=== PATIENT | female | born 1940 | race Caucasian/White ===

== ENCOUNTER 2016-12-03 17:43 | Observation (INO) | payer MEDICARE ==
[~2016-12-03] VITALS: Ht 157.5 cm; Wt 86.6 kg
--- NOTE | ~2016-12-03 | HEMODYNAMI ---
PATIENT:AVA PASCUAL MEDICAL RECORD: [id number] : 44 [facility] [id number] ADMISSION DATE: 12/03/16 Generatedon:12/04/201613:54 Patient name: AVA PASCUAL Patient #: [id number] SSN: : 1940 Date of study: 12/04/2016 Page: Of Hemodynamic Procedure Report Patient Data Patient Demographics Procedure consent was obtained First Name: AVA Gender: Female Last Name: ANKUR : 1940 [facility] Initial: NICANOR Age: 75 year(s) Patient #: [id number] Race: Unknown Additional ID: [id number] Contact details Address: [address] [address] State: [place] City: [place] Zip code: [address] Admission Admission Data Admission Date: 12/03/2016 Admission Time: 21:30 Room #: D.2114 Weight (lbs.): 191.8 Weight (kg.): 87 Lab Results Lab Result Date: 12/04/2016 Lab Result Time: 0:00 Biochemistry Name Units Result Min Max BUN mg/dl 30 --(----)-* 7 18 Creatinine mg/dl 1.4 --(----)*- 0.6 1.3 CBC Name Units Result Min Max Hemoglobin g/dl 13.3 -*(----)-- 13.5 17.5 Coagulation Name Units Result Min Max INR units 1.02 --(--*-)-- 0.85 1.17 Procedure Procedure Types Cath Procedure Diagnostic Procedure LHC LHC w/Coronaries w/Grafts FFR/IVUS Intra-Coronary IVUS Initial Miscellaneous Procedures Moderate Sedation up to 15 minutes Procedure Description Procedure Date Procedure Date: 12/04/2016 Procedure Start Time: 13:34 Procedure End Time: 13:51 Procedure Staff Name Function Edson Rodrigez MD Performing Physician Jo-Ann Holloway RN Nurse Mehran Ac RT Monitor Bakari Farias RT Road Mixer Operator Isra Sands RT Scrub Procedure Data Cath Procedure Fluoroscopy Diagnostic fluoroscopy Total fluoroscopy Time: 2.8 time: 2.8 min min Diagnostic fluoroscopy Total fluoroscopy dose: 601 dose: 601 mGy mGy Contrast Material Contrast Material Type Amount (ml) Isovue 300 85 Entry Location Entry Primary Successful Side Size Upsize Upsize Entry Closure Succes sful Closure Location (Fr) 1 (Fr) 2 (Fr) Remarks Device Remarks Femoral Right 5 Fr 6 Fr Vascade artery Short Closure System Estimated blood loss: 10 ml Diagnostic catheters Device Type Used For End Catheter Placement Cordis 5Fr Pigtail LV Angiography Catheter (MP) Cordis 5Fr JL 4.0 Coronary Catheter (MP) Angiography Cordis 5Fr 3DRC Catheter Coronary (MP) Angiography Procedure Complications No complications Procedure Medications Medication Administration Route Dosage Oxygen NC 2 l/min Heparin Flush Bag added to field 2 bags (1000units/500ml NS) Lidocaine 2% added to field 20 Benadryl I.V. 50 mg Versed I.V. 1 mg Fentanyl I.V. 50 mcg Versed I.V. 1 mg Fentanyl I.V. 50 mcg Hemodynamics Rest HGB: 13.3 (g/dl) Heart Rate: 58 (bpm) Pressure Samples Time Site Value (mmHg) Purpose Heart Use Rate(bpm) 13:39 AO 106/57(77) Snapshot 58 Snapshots Pre Cath Intra NCS Post Cath Vital Signs Time Heart Resp SPO2 NIBP (mmHg) Rhythm Pain Sedation Rate (ipm) (%) Status Level (bpm) 13:14:45 59 22 94 122/62(92) NSR 0 (11) 10(A) , No pain 13:19:03 58 25 96 118/51(103) NSR 0 (11) 10(A) , No pain 13:23:07 63 21 96 120/85(114) NSR 0 (11) 10(A) , No pain 13:27:19 56 21 93 111/54(76) NSR 0 (11) 10(A) , No pain 13:31:31 58 17 94 100/54(76) NSR 0 (11) 10(A) , No pain 13:35:38 56 23 94 113/55(85) NSR 0 (11) 9(A) , No pain 13:39:50 57 16 93 104/54(82) NSR 0 (11) 9(A) , No pain 13:44:00 56 17 92 104/52(82) NSR 0 (11) 9(A) , No pain 13:48:04 59 19 94 118/70(91) NSR 0 (11) 9(A) , No pain Medications Time Medication Route Dose Verified Delivered Reason Notes Effec tiveness by by 13:13:43 Oxygen NC 2 Jo-Ann Jo-Ann used for l/min Holloway Holloway thaw shed heater tender RN 13:13:50 Heparin Flush added 2 Jo-Ann Jo-Ann used for Bag to bags Holloway Holloway procedure (1000units/500ml field RN RN NS) 13:13:58 Lidocaine 2% added 20ml Jo-Ann Jo-Ann used for to vial Holloway Holloway procedure field RN RN 13:14:07 Benadryl I.V. 50 mg Jo-Ann Jo-Ann Per Holloway Holloway physician RN RN 13:33:25 Versed I.V. 1 mg Jo-Ann Jo-Ann for Holloway Holloway sedation RN RN 13:33:30 Fentanyl I.V. 50 Jo-Ann Jo-Ann for mcg Holloway Holloway sedation RN RN 13:34:18 Versed I.V. 1 mg Jo-Ann Jo-Ann for Holloway Holloway sedation RN RN 13:34:21 Fentanyl I.V. 50 Jo-Ann Jo-Ann for mcg Holloway Holloway sedation RN ccu nurse Log Time Note 12:45:53 Bakari Farias RT(R) (CV) sent for patient. Start room use. 13:01:08 Time tracking: Regular hours 13:01:13 Plan of Care:Hemodynamics will remain stable., Cardiac rhythm will remain stable., Comfort level will be maintained., Respiratory function will remain adequate., Patient/ family verbilizes understanding of procedure., Procedure tolerated without complication., Recovers from procedure without complications.. 13:05:09 Patient received from Outpatients to [facility] 2 Alert and oriented. Tansferred to table in Supine position. 13:05:10 Warm blankets applied, and lida hugger turned on for patient comfort. 13:05:11 Correct patient and procedure confirmed by team. 13:05:12 Signed procedure consent form obtained from patient. 13:05:12 ECG and BP/O2 sat monitors applied to patient. 13:13:38 Vital chart was started 13:13:43 Oxygen 2 l/min NC was given by Jo-Ann Holloway RN; used for procedure; 13:13:50 Heparin Flush Bag (1000units/500ml NS) 2 bags added to field was given by Jo-Ann Holloway RN; used for procedure; 13:13:58 Lidocaine 2% 20ml vial added to field was given by Jo-Ann Holloway RN; used for procedure; 13:14:07 Benadryl 50 mg I.V. was given by Jo-Ann Holloway RN; Per physician; :17:19 Baseline sample Acquired. 13:17:24 Rhythm: sinus rhythm 13:17:25 Full Disclosure recording started 13::58 H&P Date Dictated: 12/03/2016 Within 30 days and on chart.. 13::58 Pre-procedure instructions explained to patient. :20:59 Pre-op teaching completed and patient verbalized understanding. 13:21:00 Family in waiting room. 13:21:02 Patient NPO since Midnight. 13:21:05 Is the patient allergic to Iodine/contrast media? No. 13:21:21 Is patient on blood thinner?No 13:21:57 ACC The patient was administered the following blood thiners within the last 24 hours: None 13:21:59 Patient diabetic? No. 13:22:02 Patient not . Patient is over age 55. 13:22:04 Previous problem with sedation/anesthesia? No ? 13:22:04 Snore? Yes 13:22:06 Sleep apnea? No 13:22:06 Deviated septum? No 13:22:07 Opens mouth fully? Yes 13:22:08 Sticks out tongue? Yes 13:22:11 Airway obstruction? Yes COPD 13:22:14 Dentures? No ? 13:22:19 Pre procedure: right dorsailis pedis pulse 1+ Palpable, but thready & weak; easily obliterated 13:22:22 Patient pain scale 0/10 ?. 13:22:26 IV patent on arrival in left forearm with 0.9% NaCl at [facility]. 13:22:28 Lab results completed and on chart. 13:22:38 Right groin area was prepped with chlora-prep and draped in sterile fashion 13::39 Alarms reviewed by R. N. 13::39 Sharps counted by scrub and verified by R.N. 13:22:40 Physician paged 13:22:47 Use device set Femoral Dx 13:22:48 Tegaderm 4 x 4 opened to sterile field. 13:22:48 Acist Manifold opened to sterile field. 13:22:49 Acist Hand Control opened to sterile field. 13:22:50 Acist Syringe opened to sterile field. 13:22:51 Bag Decanter opened to sterile field. 13:22:52 Medline Cath Pack opened to sterile field. 13:22:52 Terumo 5Fr [place] Sheath opened to sterile field. 13:22:52 St Charan 260cm J .035 wire opened to sterile field. 13:22:54 Diagnostic Infinity 5Fr Multipack catheter opened to sterile field. 13:25:41 Patient Weight : 87 lbs 13::58 Lab Result : BUN 30 mg/dl 13::58 Lab Result : Creatinine 1.4 mg/dl 13:27:14 Zero performed for pressure channel P1 13:29:18 Lab Result : Hemoglobin 13.3 g/dl 13:29:18 Lab Result : INR 1.02 units 13:29:50 ACC Patient presents with Unstable Angina CCS Anginal Class 3--Marked limitation of physical activity, angina occurs with ordinary activity.. 13:31:00 --------ALL STOP TIME OUT------ 13:31:01 Final Timeout: patient, procedure, and site verified with staff and physician. All members of the team are in agreement. 13:31:04 Right groin site verified by team. 13:31:07 Physical assessment completed. ASA score P 2 - A patient with mild systemic disease as per Edson Rodrigez MD. 13:31:09 Sedation plan: IV Moderate Sedation Versed, Fentanyl 13:33:25 Versed 1 mg I.V. was given by Jo-Ann Holloway RN; for sedation; 13:33:30 Fentanyl 50 mcg I.V. was given by Jo-Ann Holloway RN; for sedation; :34:18 Versed 1 mg I.V. was given by Jo-Ann Holloway RN; for sedation; 13:34:21 Fentanyl 50 mcg I.V. was given by Jo-Ann Holloway RN; for sedation; 13:34:45 Procedure started. 13::52 Local anesthetic to right femoral artery with Lidocaine 2% by Edson Rodrigez MD.INITIAL ACCESS ONLY 13:35:36 A 5 Fr sheath was inserted into the Right Femoral artery 13:35:45 A Cordis 5Fr Pigtail Catheter (MP) was advanced over the wire and used for LV Angiography. 13:35:59 LV angiography performed. 13:36:00 LV gram done using RAIN 13:36:06 EF : 60 % 13:36:26 Injector settings: Ml/sec: 10, Volume: 20, 13:36:28 Catheter removed. 13:36:33 A Cordis 5Fr JL 4.0 Catheter (MP) was advanced over the wire and used for Coronary Angiography. 13:37:18 LCA angiography performed. 13:37:28 Catheter removed. 13:37:35 A Cordis 5Fr 3DRC Catheter (MP) was advanced over the wire and used for Coronary Angiography. 13:38:23 ANDERSON closed. 13:38:37 RCA angiography performed. 13:39:41 SVG to OM angiography performed. 13:39:50 Catheter removed. 13:40:40 Terumo 6Fr [place] Sheath opened to sterile field. 13:40:40 [place] E[place] IVUS Catheter opened to sterile field. 13:40:41 Hernandez Whisper J 300cm 0.014 guide wire opened to sterile field. 13:40:41 Millennial Mediatronic Launcher 6Fr 3DRC guide catheter opened to sterile field. 13:40:41 Luna Innovations BasixCompak Inflation Kit opened to sterile field. 13:41:01 Sheath upsized to a 6 Fr Short. 13:41:08 6 Fr 3DRC guide catheter was inserted over the wire 13:42:27 Whisper wire advanced. 13:43:04 Wire advanced across lesion. 13:43:07 IVUS catheter advanced over wire. 13:44:05 IVUS pass to RCA lesion performed. 13:44:07 IVUS catheter removed over wire. 13:44:33 Wire removed. 13:44:33 Guide catheter removed. 13:44:43 Vascade 6/7 Fr Closure Device opened to sterile field. 13:44:51 Sheath removed intact; hemostasis achieved with Vascade Closure System to the Right Femoral artery. 13:44:53 Procedure ended.(Physican Out) 13:48:26 Fluoroscopy time 02.80 minutes. 13:48:31 Fluoroscopy dose: 601 mGy 13:48:31 Flurop Dose total: 601 13:48:41 Contrast amount:Isovue 300 85ml. 13:48:47 Sharps counted by scrub and verified by R.N. 13:48:49 Insertion/operative site no bleeding no hematoma. 13:48:52 Post-op/insertion site Right Femoral artery dressed using a 4 x 4 and Tegaderm. 13:48:53 Post Procedure Pulses reassessed and unchanged 13:48:56 Post procedure: right dorsailis pedis pulse 1+ Palpable, but thready & weak; easily obliterated. 13:48:59 Post-procedure physical assessment completed. ASA score P 2 - A patient with mild systemic disease as per Edson Rodrigez MD. 13:49:01 Post procedure rhythm: unchanged. 13:49:04 Estimated blood loss: 10 ml 13:49:06 Post procedure instruction explained to patient.Patient verbalizes understanding. 13:49:06 Patient needs reinforcement of post procedure teaching. 13:49:48 Procedure type changed to Cath procedure, Diagnostic procedure, LHC, LHC w/Coronaries w/Grafts, FFR/IVUS, Intra-Coronary IVUS Initial, Miscellaneous Procedures, Moderate Sedation up to 15 minutes 13:49:54 Procedure Complication : No complications 13:49:56 Procedure and supply charges have been captured, reviewed, submitted and are correct. 13:51:23 Vital chart was stopped 13:51:24 See physician's report for complete and final results. 13:51:27 Report given to PCU. 13:51:31 Patient transfered to PCU with Bed. 13:51:36 Procedure ended. 13:51:36 Full Disclosure recording stopped 13:53:37 End room use (Document Last) Device Usage Item Name Manufacture Quantity Catalog Hospital Part Current Minima l Lot# / Number Charge Number Stock Stock Serial# Code Tegaderm 4 3M 1 [id number] 417794 075877 5 x 4 Acist Acist 1 13628 235475 618640 797125 5 Manifold Medical Systems Inc Acist Hand Acist 1 76211 294513 366502 997353 5 Control Medical Systems Inc Acist Acist 1 20636 418593 148626 605922 20 Syringe Medical Systems Inc Bag Microtek 1 2002S 617609 83461 449835 5 Decanter Medical Inc. Medline Cardinal 1 [id number] 462091 66854 426343 5 Cath Pack Health Terumo 5Fr Terumo 1 [id number] 815215 983070 781035 [address] Charan 1 828720 220860 751736 793424 30 260cm J .035 wire Diagnostic Cardinal 1 [id number] 215548 77914 109825 30 Infinity Health 5Fr Multipack catheter Cordis 5Fr Cardinal 1 757379 5 Pigtail Health Catheter (MP) Cordis 5Fr Cardinal 1 893999 5 JL 4.0 Health Catheter (MP) Cordis 5Fr Cardinal 1 015277 5 3DRC Health Catheter (MP) Terumo 6Fr Terumo 1 [id number] 028381 037957 826027 40 [place] Sheath [place] 1 [id number] 331732 619087 754717 8 [place] Eagleye IVUS Catheter [facility] 1 [id number] 183212 146587 266847 5 Whisper J Vascular 300cm 0.014 guide wire Medtronic Medtronic 1 [id number] 772360 541732 915068 1 Launcher 6Fr 3DRC guide catheter Merit Merit 1 [id number] 074484 408241 792103 15 [facility] Trust[facility] Medical Inflation Kit Vascade 6/7 Cardiva 1 [id number] 096522 073528 188574 5 Fr Closure Medical, Device Inc. Signature Audit [place] Stage Time Signature Unsigned Intra-Procedure 12/04/2016 Mehran Ac 1:54:21 PM RT(R) Signatures Monitor : Mehran Ac RT Signature : Date : Time : [facility] [address] [place] [address]
[~2016-12-03 17:43] MED LIST: ASPIRIN325 MG PO; BAYER CHEWABLE81 MG PO; BENADRYL25 MG PO; CARAFATE1 G PO; COLACE100 MG PO; ELIQUIS2.5 MG PO; GLYCOLAX527 GM PO; HYDROCODONE-APA1 TAB PO; K-DUR20 MEQ; K-DUR20 MEQ PO; LASIX40 MG PO; LISINOPRIL-HCTZ1 T11 PO; MEVACOR40 MG PO; MIRALAX17 GM PO; NITROQUICK0.4 MG SL; NORCO 10/325 TA1 TA1 PO; PEPCID40 MG PO; PERCOCET 10/3251 TA1 PO; PLAVIX75 MG PO; PRILOSEC20 MG PO; PRINIVIL20 MG PO; PRINZIDE 20/12.1 TAB PO; TESSALON PERLE100 MG PO; VOLTAREN75 MG PO; ZOFRAN4 MG PO; [UNRECOGNIZED DRUG - OTHER]
[2016-12-03 18:11] LABS: BASOPHILS 0.2 % (0.0-2.0); EOSINOPHILS 0.3 % (0-7); HEMATOCRIT 48.6 % (36.0-48.0); HEMOGLOBIN 16.7 g/dL (12-16); IMMATURE GRANULOCYTES 0.2 % (0-5); LYMPHOCYTES 20.7 % (15-50); MCH 33.2 pg (26.0-34.0); MCHC 34.4 g/dL (31.0-37.0); MCV 96.6 fL (80.0-100.0); MEAN PLATELET VOLUME 11.2 fL (7.4-10.4); MONOCYTES 5.9 % (2-11); NEUTROPHILS 72.7 % (40-80); PLATELET COUNT 178 10x3/uL (130-400); RBC 5.03 10x6/uL (4.00-5.40)
[2016-12-03 18:25] LABS: ALBUMIN 3.7 g/dL (3.4-5.0); ALKALINE PHOSPHATASE 69 U/L (46-116); ALT (SGPT) 24 U/L (10-68); BILIRUBIN - TOTAL 0.36 mg/dL (0.2-1.3); CALC OSMOLALITY 286 mosm/kg (275-300); CALCIUM 8.8 mg/dL (8.5-10.1); CARBON DIOXIDE 30.2 mmol/L (21.0-32.0); CHLORIDE - SERUM 100 mmol/L (98-107); CREATININE - SERUM 1.5 mg/dL (0.6-1.3); GLUCOSE 144 mg/dL (74-106); PROTEIN - SERUM 7.6 g/dL (6.4-8.2); SODIUM 140 mmol/L (136-145); UREA NITROGEN 27 mg/dL (7-18); eGFR NON AFRICAN AMERICAN 36 mL/min (90-120)
[2016-12-03 18:37] LABS: CKMB 1.9 U/L (0.0-3.6); CREATINE KINASE 82 UL (21-215)
[2016-12-03 18:40] LABS: TROPONIN-I < 0.017 ng/mL (0.000-0.060)
--- NOTE | 2016-12-03 21:40 | NUR ---
REPORT RECEIVED FROM ADRIANA CALL.
--- NOTE | 2016-12-03 22:55 | NUR ---
ARRIVED TO FLOOR VIA WHEELCHAIR, ACCOMPANIED BY HOSPITAL STAFF. ORIENTED TO UNIT AND PLACED ON TELEMETRY 76 SR. LEFT FOREARM INFUSING NS @ 50. NO NEEDS VOICED AT THIS TIME. WILL CONTINUE TO MONITOR. CALL LIGHT IN REACH. SEE NURSE ASSESSMENT.
[2016-12-03 23:17] VITALS: BP 124/56; Ht 157.5 cm; Wt 86.6 kg
[2016-12-04] VITALS: BP 124/56
--- NOTE | 2016-12-04 00:11 | NUR ---
BUTTON PUNCHER AT BEDSIDE TO OBTAIN VITALS, CALL LIGHT IN REACH. WILL CONTINUE WITH PLAN OF CARE.
[2016-12-04 04:00] VITALS: BP 107/46
--- NOTE | 2016-12-04 05:54 | NUR ---
IV TO LEFT FOREARM INFILTRATED, DC'D WITH TIP INTACT. 22 GAUGE TO LEFT UPPER ARM X 2 STICKS.
[2016-12-04 08:00] VITALS: BP 88/33
[2016-12-04 09:27] LABS: BASOPHILS 0 % (0.0-2.0); EOSINOPHILS 0.8 % (0-7); HEMATOCRIT 42.5 % (36.0-48.0); IMMATURE GRANULOCYTES 0.1 % (0-5); LYMPHOCYTES 33.8 % (15-50); MCH 32.5 pg (26.0-34.0); MCHC 32.9 g/dL (31.0-37.0); MEAN PLATELET VOLUME 11.5 fL (7.4-10.4); MONOCYTES 9.6 % (2-11); NEUTROPHILS 55.7 % (40-80); PLATELET COUNT 161 10x3/uL (130-400); RBC 4.31 10x6/uL (4.00-5.40); RDW 14.2 % (11.5-14.5); WBC 7.4 10x3/uL (4.8-10.8)
[2016-12-04 09:29] LABS: MCV 98.6 fL (80.0-100.0)
[2016-12-04 09:31] LABS: INR 1.02 (0.85-1.17); PROTIME 13.3 SECONDS (11.6-15.0)
--- NOTE | 2016-12-04 09:31 | NUR ---
TELEMETRY SB 56. CONSENTS SIGNED FOR [facility]. WILL CONT. PLAN OF CARE.
[2016-12-04 09:33] LABS: ANION GAP 12.8 mmol/L (8-16); CALCIUM 8.2 mg/dL (8.5-10.1); CARBON DIOXIDE 27.4 mmol/L (21.0-32.0); CREATININE - SERUM 1.4 mg/dL (0.6-1.3); POTASSIUM - SERUM 3.2 mmol/L (3.5-5.1)
[2016-12-04 12:00] VITALS: BP 129/62
--- NOTE | 2016-12-04 13:01 | NUR ---
PRE-OPS GIVEN. TO FISHING ACCESSORIES MAKER BY BED.
--- NOTE | 2016-12-04 14:17 | NUR ---
BACK FROM JEWELRY STORE MANAGER. VS WNL. RIGHT GROIN STABLE WITHOUT BLEEDING OR HEMATOMA NOTED. WILL MONITOR.
[2016-12-04] MEDS ORDERED: BETAPACE 80 MG80 MG PO (14:34)
[2016-12-04 16:00] VITALS: BP 140/55
--- NOTE | 2016-12-04 17:00 | NUR ---
BEDREST UP. GROIN STABLE.
--- NOTE | 2016-12-04 17:40 | NUR ---
IV AND TELEMETRY DCD. DC PLANS GIVEN. UNDERSTANDING VOICED. ESCORTED TO CAR BY W/C.
--- NOTE | 2016-12-08 10:32 | EC ---
PATIENT:AVA PASCUAL DATE OF SERVICE: 12/03/16 SEX: F MEDICAL RECORD: [id number] DATE OF : 44 LOCATION:D. D.211 AGE OF PATIENT: 76 ADMISSION DATE: 12/03/16 REFERRING PHYSICIAN: INTERPRETING PHYSICIAN: NAV RODRIGEZ MD ECHOCARDIOGRAM REPORT ECHO CHARGES 4 ECHO COMPLETE CLINICAL DIAGNOSIS: A-FIB ECHOCARDIOGRAPHIC MEASUREMENTS (adult normal given) AC root (d.<3.7cm) 2.7 LV Septum d (<1.2 cm> 1.0 Valve Excursion 1.9 LV Septum (systole) 1.6 Left Atria (s.<4.0cm> 3.4 LVPW d(<1.2cm) 1.1 RV (d.<2.3cm) 3.2 LVPW (sytole) 1.8 LV diastole(<5.6CM) 5.2 MV E-F(>70mm/sec) LV systole 3.0 LVOT Diameter 1.8 MV exc.(>10mm) Est.ejection fraction (50-75%) Pericardial Effusion N DOPPLER: LVIT A 69.0 E 92.0 LA RVSP 39.3 LVOT 68.0 AOP1/2T Asc. Ao 120 RVOT 62.0 RA PA 72.0 AV Gradient Peak 5.8 AV Mean 3.3 AV Area 1.4 MV Gradient Peak 4.2 MV Mean 1.5 MV Area COMMENTS: Salesperson Flying Squad: Ayse GARNETTOE Change Lead:1 Dr. Rodrigez TAPE# PACS DATE OF SERVICE: 12/04/2016 FINDINGS: 1. Left ventricular chamber size is within normal limits. Left ventricular systolic function is mildly reduced, overall ejection fraction estimated at 40%. 2. Left atrium is within normal limits at 3.4 cm. Right atrium and right ventricular chamber sizes are upper limits of normal. 3. Valvular structures have normal structure and motion. 4. Doppler interrogation reveals moderate mitral regurgitation, moderate tricuspid regurgitation, no other valvular insufficiency or stenosis. ECHOCARDIOGRAM REPORT [id number] AVA PASCUAL 5. No evidence of pericardial effusion or left ventricular thrombus. TRANSINT:[id number] Voice Confirmation ID: [id number] DOCUMENT ID: [id number] NAV RODRIGEZ MD at 1032 CC: [id number] DICTATION DATE: 12/07/16 1111 MACHINE CLOTH TRIMMER: 12/07/162120 DIS IN 12/04/16 [facility] [address] [id number]
--- NOTE | 2016-12-08 10:32 | DS ---
PATIENT:AVA GANN :44 MEDICAL RECORD: [id number] DISCHARGE SUMMARY ADMISSION DATE: 12/03/16 DISCHARGE DATE: 12/04/16 DISCHARGE DIAGNOSES: 1. Atrial fibrillation, new onset. 2. Coronary artery disease. 3. Angina. 4. Hypertension. 5. Hyperlipidemia. HOSPITAL COURSE: Ms. Gann presents with angina and atrial fibrillation. She converted to sinus rhythm with sotalol. She underwent cardiac catheterization revealing no new coronary artery disease, was discharged home with the addition of sotalol to her medical regimen. Will follow up with [facility] in 1 month. TRANSINT:[id number] Voice Confirmation ID: [id number] DOCUMENT ID: [id number] NAV PHILLIPS MD at 1032 CC: [id number] DICTATION DATE: 12/04/16 1353 SECURITY SYSTEM TECHNICIAN: 12/05/16 0402 DIS IN 12/04/16 [id number] [place] [address]
--- NOTE | 2016-12-08 10:33 | OP ---
PATIENT NAME: AVA PASCUAL MEDICAL RECORD: [id number] :44 LOCATION:D.M2 D.2114 ADMISSION DATE:12/03/16 SURGEON: ANV PHILLIPS MD DATE OF OPERATION: 12/04/2016 PROCEDURES: 1. Left heart catheterization. 2. Selective coronary angiography. 3. Left ventriculogram. 4. Vein graft angiography. 5. ANDERSON angiography. 6. Intravascular ultrasound, RCA. INDICATION: Angina and coronary artery disease. DESCRIPTION OF THE PROCEDURE: After informed consent was obtained and after a detailed explanation of the risks, benefits as well as alternative therapies, the patient elected to proceed with angiogram and heart catheterization. The right femoral area was prepped and draped in normal sterile fashion. The right femoral artery was cannulated via modified Seldinger technique with placement of 6-Slovenian sheath. All catheters exchanged through this sheath. FINDINGS: Left ventriculogram was performed in standard 30-degree RAIN view, reveals good cardiac wall motion throughout all segments. Overall ejection fraction estimated at 60%. SELECTIVE CORONARY ANGIOGRAPHY: 1. Left main is with no significant angiographic disease. 2. Left anterior descending has previously placed stent proximally. This is widely patent. The LAD then has a significant stenosis in the mid vessel. 3. ANDERSON to the distal LAD is widely patent. 4. Left circumflex has total occlusion of the first obtuse marginal, otherwise only moderate irregularities. 5. Vein graft to the circumflex obtuse marginal is widely patent. 6. The right coronary artery has questionable hazy stenosis in the mid vessel; however, intravascular ultrasound revealed this is no greater than 30%. OVERALL IMPRESSION: Wide patency of the ANDERSON to the LAD, wide patency of the vein graft to the circumflex, no significant disease elsewise. Continue medical management on treatment of the dysrhythmia and atrial fibrillation. TRANSINT:[id number] Voice Confirmation ID: [id number] DOCUMENT ID: [id number] NAV PHILLIPS MD at 1033 CC: [id number] DICTATION DATE: 12/04/16 1355 DRAGLINE ENGINEER: 12/04/16 1934 DIS IN 12/04/16 [facility] [address] [place] [address]
== END 2016-12-04 17:41 | disposition home or self-care (01) ==
LOC: D.ER 17:43 → D.M2 21:30 → OBSVTIME 21:30 → D.M2 12-04 17:41
PROVIDERS: Emergency Medicine; ADMIT Internal Medicine Interventional Cardiology
DX: I48.91 Unspecified atrial fibrillation (principal); I25.119 Atherosclerotic heart disease of native coronary artery with unspecified angina pectoris; Z95.5 Presence of coronary angioplasty implant and graft; Z95.1 Presence of aortocoronary bypass graft; I10 Essential (primary) hypertension; E78.5 Hyperlipidemia, unspecified; Z72.0 Tobacco use

== ENCOUNTER → 2017-08-06 14:08 | Outpatient (CLI) | payer MEDICARE ==
[2016-12-03 23:17] VITALS: BMI 34.9
[~2017-08-06 14:08] MED LIST changes: +BETAPACE 80 MG80 MG PO
[2017-08-06 15:04] LABS: BASOPHILS 0.2 % (0-2); EOSINOPHILS 0.8 % (0-7); HEMATOCRIT 50.5 % (36.0-48.0); HEMOGLOBIN 17.5 g/dL (12-16); IMMATURE GRANULOCYTES 0.2 % (0-5); MCH 33.8 pg (26.0-34.0); MCHC 34.7 g/dL (31.0-37.0); MCV 97.5 fL (80.0-100.0); MEAN PLATELET VOLUME 11.2 fL (7.4-10.4); MONOCYTES 8.3 % (2-11); NEUTROPHILS 60.5 % (40-80); PLATELET COUNT 159 10x3/uL (130-400); RBC 5.18 10x6/uL (4.00-5.40); RDW 13.9 % (11.5-14.5); WBC 6.6 10x3/uL (4.8-10.8)
[2017-08-06 15:08] LABS: ANION GAP 12.6 mmol/L (8-16); CALCIUM 9.3 mg/dL (8.5-10.1); CARBON DIOXIDE 28.8 mmol/L (21.0-32.0); CREATININE - SERUM 1.2 mg/dL (0.6-1.3); POTASSIUM - SERUM 3.4 mmol/L (3.5-5.1)
== END | disposition home or self-care (01) ==
LOC: D.RAD 11:00
PROVIDERS: Podiatrist Foot & Ankle Surgery
DX: I50.9 Heart failure, unspecified (principal); J44.9 Chronic obstructive pulmonary disease, unspecified

== ENCOUNTER 2020-12-22 07:10 | Inpatient (IN) | payer MEDICARE ==
[~2020-12-22] VITALS: Ht 157.5 cm; Wt 94.8 kg
[2020-12-22] VITALS (8 sets, daily range): BP systolic 127–187; BP diastolic 51–90
--- NOTE | ~2020-12-22 | HEMODYNAMI ---
PATIENT:AVA PASCUAL MEDICAL RECORD: [id number] : 44 LOCATION:[facility] D.2134 [facility]# [id number] ADMISSION DATE: 12/22/20 Generatedon:110:28 Patient name: AVA PASCUAL Patient #: [id number] SSN: [id number] : 1940 Date of study: 12/23/2020 Page: Of Hemodynamic Procedure Report Patient Data Patient Demographics Procedure consent was obtained First Name: AVA Gender: Female Last Name: ANKUR : 1940 [facility] Initial: NICANOR Age: 80 year(s) Patient #: [id number] Race: SSN: [id number] Additional ID: [id number] Contact details Address: [place] [address] State: [place] City: [place] Zip code: [address] Admission Admission Data Admission Date: 12/22/2020 Admission Time: 8:21 Arrival Date: 12/22/2020 Arrival Time: 8:21 Admit Source: Other Insurance Payor: Private Room #: D.2134 health insurance [facility] #: [id number] Height (in.): 61.81 BSA: 1.95 (m2) Height (cm.): 157 BMI: 38.54 (kg/m2) Weight (lbs.): 209.44 Weight (kg.): 95 Lab Results Lab Result Date: 12/23/2020 Lab Result Time: 0:00 Biochemistry Name Units Result Min Max BUN mg/dl 17 --(---*)-- 7 18 Creatinine mg/dl 1.2 --(---*)-- 0.6 1.3 eGFR ml/min 46 *-(----)-- 90 120 NONAFRICAN CBC Name Units Result Min Max Hemoglobin g/dl 9.6 *-(----)-- 13.5 17.5 Procedure Procedure Types Cath Procedure Diagnostic Procedure LHC LHC w/Coronaries w/Grafts FFR/IVUS FFR Initial Sedation Charges Moderate Sedation 25-39 minutes Procedure Description Procedure Date Procedure Date: 12/23/2020 Procedure Start Time: 9:57 Procedure End Time: 10:25 Procedure Staff Name Function Floridalma Howard RT Monitor Reymundo Colindres RN Nurse Garrett Dricsoll MD Performing Physician Coco Plascencia RT Scrub Procedure Data Cath Procedure Fluoroscopy Diagnostic fluoroscopy Total fluoroscopy Time: 6.8 time: 6.8 min min Diagnostic fluoroscopy Total fluoroscopy dose: dose: 1116 mGy 1116 mGy Contrast Material Contrast Material Type Amount (ml) Isovue 370 107 Entry Location Entry Primary Successful Side Size Upsize Upsize Entry Closure Succes sful Closure Location (Fr) 1 (Fr) 2 (Fr) Remarks Device Remarks Femoral Right 5 Fr 6 Fr Exoseal artery Short Estimated blood loss: 0 ml Diagnostic catheters Device Type Used For End Catheter Placement MULTIPACK JL 4.0 5Fr Left Coronary catheter Angiography DIAGNOSTIC AR1 MOD 5Fr Multi-vessel catheter ([id number]) Angiography MULTIPACK 3DRC 5Fr Right Coronary catheter Angiography DIAGNOSTIC IM 5Fr SVG Angiography catheter ([id number]) MULTIPACK Pigtail 5 Fr LV Angiography catheter Procedure Complications No complications Procedure Medications Medication Administration Route Dosage Oxygen etCO2 Nasal cannula 4 l/min Lidocaine 2% added to field 20 Heparin Flush Bag added to field 2 bags (1000units/500ml NS) 0.9% NaCl I.V. 100 ml/hr Versed I.V. 1 mg Fentanyl I.V. 50 mcg Versed I.V. 1 mg Fentanyl I.V. 50 mcg Versed I.V. 1 mg Heparin Bolus I.V. 9000 units Hemodynamics Rest BSA: 1.95 (m2) HGB: 9.6 (g/dl) O2 Consumption: Estimated: 177.67 (ml/min) O2 Con sumption indexed: Estimated:91.11 (ml/min/m) Heart Rate: 72 (bpm) Pressure Samples Time Site Value (mmHg) Purpose Heart Use Rate(bpm) 10:10 LV 108/7,29 Snapshot 61 10:10 LV 131/4,15 Pullback 61 10:10 AO 136/52(84) Pullback 61 Gradients Valve Time Site 1 Site 2 Mean SEP/DFP Peak To Heart Use (mmHg) (sec/min) Peak Rate (mmHg) (bpm) Aortic 10:10 LV AO 0 3 0 61 131/4,15 136/52(84) Calculations Valve P-P Mean Valve Index Valve Source Name Gradient Area Flow (cm2) Aortic 0 0 0 0 Snapshots Pre Cath Intra NCS Post Cath Vital Signs Time Heart Resp SPO2 etCO2 NIBP (mmHg) Rhythm Pain Sedation Rate (ipm) (%) (mmHg) Status Level (bpm) 9:38:44 69 25 95 0 157/82(108) NSR 0 (11) 10(A) , No pain 9:43:17 66 29 95 0 145/74(99) NSR 0 (11) 10(A) , No pain 9:47:37 65 31 93 0 130/67(94) NSR 0 (11) 10(A) , No pain 9:51:59 61 20 94 0 138/70(102) NSR 0 (11) 10(A) , No pain 9:56:19 61 20 94 0 136/71(107) NSR 0 (11) 10(A) , No pain 10:00:40 60 16 95 0 147/76(117) NSR 0 (11) 9(A) , No pain 10:05:06 60 18 95 0 143/73(111) NSR 0 (11) 9(A) , No pain 10:09:30 62 14 94 0 134/73(106) NSR 0 (11) 9(A) , No pain 10:13:52 60 22 96 0 135/72(117) NSR 0 (11) 9(A) , No pain 10:18:18 60 24 97 0 139/70(111) NSR 0 (11) 10(A) , No pain 10:22:49 63 26 96 0 140/73(112) NSR 0 (11) 10(A) , No pain Medications Time Medication Route Dose Verified Delivered Reason Notes Effectiveness by by 9:37:58 Oxygen etCO2 4 Garrett Buffie used for Nasal l/min Americo Colindres RN procedure cannula 9:38:05 Lidocaine 2% added 20ml Garrett Garrett for local to vial Americo Driscoll MD anesthetic field 9:38:11 Heparin Flush added 2 Garrett Buffie used for Bag to bags Americo Colindres RN procedure (1000units/500ml field NS) 9:38:27 0.9% NaCl I.V. 100 Garrett Buffie Per physician ml/hr Americo Colindres RN 9:48:22 Versed I.V. 1 mg Garrett Buffie for sedation Americo Colindres RN 9:48:29 Fentanyl I.V. 50 Garrett Buffie for sedation mcg Americo Colindres RN 9:57:11 Versed I.V. 1 mg Garrett Buffie for sedation Americo Colindres RN 9:57:15 Fentanyl I.V. 50 Garrett Buffie for sedation mcg Americo Colindres RN 10:06:30 Versed I.V. 1 mg Garrett Buffie for sedation Americo Colindres RN 10:14:05 Heparin Bolus I.V. 9000 Garrett Buffie for verif ied units Americo Colindres RN anticoagulation with dr driscoll Procedure Log Time Note 8:58:59 Informed consent obtained and on chart 9:01:44 Diagnostic Cath Status : Urgent 9:02:16 Admit Source: Other 9:02:18 ACC Patient presents with Unstable Angina CCS Anginal Class 2--Slight limitation of ordinary activity. 9:02:22 Procedure Status Urgent Heart Cath (IP). 9:02:24 Time tracking: Regular hours (M-F 7:00 - 5:00) 9:02:29 Plan of Care:Hemodynamics will remain stable., Cardiac rhythm will remain stable., Comfort level will be maintained., Respiratory function will remain adequate., Patient/ family verbilizes understanding of procedure., Procedure tolerated without complication., Recovers from procedure without complications.. 9:02:32 Family unavailable. 9:02:34 Patient NPO since Midnight. 9:08:39 Reymundo Colindres RN sent for patient. Start room use. 9:11:07 Lab Result : eGFR NONAFRICAN 46 ml/min 9:11:07 Lab Result : Hemoglobin 9.6 g/dl 9:11:07 Lab Result : BUN 17 mg/dl 9:11:07 Lab Result : Creatinine 1.2 mg/dl 9:12:30 Arrival Date: 12/22/2020 8:21:00 AM 9:12:48 Insurance Payor : Private health insurance 9:12:51 Patient Height : 61.81 inches 9:12:55 Patient Weight : 209.44 lbs 9:17:02 Risk of Mortality: 0.1 9:17:05 Risk of blood transfusion: 13.6 9:17:18 Right groin area was prepped with chlora-prep and draped in sterile fashion 9:17:19 Sharps counted by scrub and verified by R.N. 9:17:19 Alarms reviewed by R. N. 9:23:18 Patient received from Med II to CCL 1 Alert and oriented. Tansferred to table in Supine position. 9:23:19 Correct patient and procedure confirmed by team. 9:23:19 Warm blankets applied, and lida hugger turned on for patient comfort. 9:23:20 ECG and BP/O2 sat monitors applied to patient. 9:37:18 Vital chart was started 9:37:22 Baseline sample Acquired. 9:37:29 Rhythm: sinus rhythm 9:37:31 Full Disclosure recording started 9:37:37 H&P Date Dictated: 12/23/2020 New H&P dictated by physician.. 9:37:39 Pre-op teaching completed and patient verbalized understanding. 9:37:39 Pre-procedure instructions explained to patient. 9:37:43 Is the patient allergic to Iodine/contrast media? No. 9:37:45 Was the patient premedicated? Yes 9:37:46 Is patient on blood thinner?No 9:37:58 Oxygen 4 l/min etCO2 Nasal cannula was administered by Reymundo Colindres RN; used for procedure; Verbal order read back and verified. 9:38:05 Lidocaine 2% 20ml vial added to field was administered by Garrett Driscoll MD; for local anesthetic; Verbal order read back and verified. 9:38:11 Heparin Flush Bag (1000units/500ml NS) 2 bags added to field was administered by Reymundo Colindres RN; used for procedure; Verbal order read back and verified. 9:38:27 0.9% NaCl 100 ml/hr I.V. was administered by Reymundo Colindres RN; Per physician; Verbal order read back and verified. 9:44:59 Patient diabetic? No. 9:45:07 Previous problem with sedation/anesthesia? No ? 9:45:09 Snore? No 9:45:10 Sleep apnea? No 9:45:11 Opens mouth fully? Yes 9:45:11 Deviated septum? No 9:45:12 Sticks out tongue? Yes 9:45:17 Airway obstruction? Yes COPD ASTHMA 9:45:21 Dentures? Yes IN TIGHT 9:45:26 Pre procedure: right dorsailis pedis pulse 2+ Normal; easily identifiable; not easily obliterated 9:45:29 Pre procedure: left dorsailis pedis pulse 2+ Normal; easily identifiable; not easily obliterated 9:45:32 Patient pain scale 0/10 ?. 9:45:38 IV patent on arrival in left forearm with 0.9% NaCl at O. 9:45:57 Physician arrived 9:45:58 --------ALL STOP TIME OUT------ 9:46:00 Final Timeout: patient, procedure, and site verified with staff and physician. All members of the team are in agreement. 9:46:02 Right groin site verified by team. 9:46:05 Fire Safety Assessment: A--An alcohol-based skin anteseptic being used preoperatively., C--Open oxygen or nitrous oxide is being used., D--An ESU, laser, or fiber-optic light is being used. 9:46:08 Physical assessment completed. ASA score P 2 - A patient with mild systemic disease as per Garrett Driscoll MD. 9:46:21 3a) 45-59 Moderately reduced kidney function. 9:46:43 Maximum allowable contrast dose (3.7 X eGFR X 0.75)127 ml. 9:46:48 Sedation plan: IV Moderate Sedation Medication:Versed, Fentanyl 9:46:51 Use device set Femoral Dx 9:46:52 Bag Decanter (2001S) opened to sterile field. 9:46:52 ACIST Syringe (94786) opened to sterile field. 9:46:53 Medline Cath Pack ([id number]) opened to sterile field. 9:46:54 ACIST Manifold (80181) opened to sterile field. 9:46:54 ACIST Hand Control (09145) opened to sterile field. 9:46:55 Tegaderm 4 x 4 (1626W) opened to sterile field. 9:46:55 DIAGNOSTIC Multipack 5Fr catheter set (VM1475) opened to sterile field. 9:47:19 SHEATH 5FR [place] (RUB338) opened to sterile field. 9:47:20 EMERALD Guide Wire (374-404) opened to sterile field. 9:48:22 Versed 1 mg I.V. was administered by Reymundo Colindres RN; for sedation; Verbal order read back and verified. 9:48:29 Fentanyl 50 mcg I.V. was administered by Reymundo Colindres RN; for sedation; Verbal order read back and verified. 9:52:59 Zero performed for pressure channel P1 9:53:12 Zero performed for pressure channel P1 9:57:11 Versed 1 mg I.V. was administered by Reymundo Colindres RN; for sedation; Verbal order read back and verified. 9:57:11 Procedure started. 9:57:15 Fentanyl 50 mcg I.V. was administered by Reymundo Colindres RN; for sedation; Verbal order read back and verified. 9:57:16 Local anesthetic to right femoral artery with Lidocaine 2% by Garrett Driscoll MD.INITIAL ACCESS ONLY 9:58:46 A 5 Fr sheath was inserted into the Right Femoral artery 9:58:57 A MULTIPACK JL 4.0 5Fr catheter was advanced over the wire and used for Left Coronary Angiography. 9:59:39 LCA angiography performed. 9:59:42 Injector settings: Ml/sec: 3, Volume: 6, 10:01:12 Catheter removed. 10:02:29 A DIAGNOSTIC AR1 MOD 5Fr catheter ([id number]) was advanced over the wire and used for Multi-vessel Angiography. 10:02:35 SVG to Circ angiography performed. 10:03:36 RCA angiography performed. 10:03:39 Injector settings: Ml/sec: 3, Volume: 6, 10:04:27 Catheter removed. 10:04:45 A MULTIPACK 3DRC 5Fr catheter was advanced over the wire and used for Right Coronary Angiography. 10:06:15 RCA angiography performed. 10:06:19 Injector settings: Ml/sec: 3, Volume: 6, 10:06:22 Catheter removed. 10:06:30 Versed 1 mg I.V. was administered by Reymundo Colindres RN; for sedation; Verbal order read back and verified. 10:06:37 A DIAGNOSTIC IM 5Fr catheter ([id number]) was advanced over the wire and used for SVG Angiography. 10:08:15 ANDERSON angiography performed. 10:08:18 Injector settings: Ml/sec: 3, Volume: 6, 10:08:31 Catheter removed. 10:08:55 A MULTIPACK Pigtail 5 Fr catheter was advanced over the wire and used for LV Angiography. 10:10:35 LV gram done using RAIN 10:10:38 Injector settings: Ml/sec: 5, Volume: 15, 10:10:41 LV hemodynamics recorded. 10:10:47 EF : 55 % 10:11:09 Catheter removed. 10:11:48 INFLATOR Merit BasixCompak (VC0303) opened to sterile field. 10:11:48 SHEATH 6FR [place] (QYG907) opened to sterile field. 10:11:49 TUBING High Pressure Extension Tubing (Americo) ([id number]) opened to sterile field. 10:13:29 Downey OmniWire (81296) opened to sterile field. 10:13:30 GUIDE 6FR JR 4.0 catheter (UV3GF57) opened to sterile field. 10:13:54 Proceeding to intervention. 10:14:01 Sheath upsized to a 6 Fr Short. 10:14:04 ACC Pre-intervention JACQUES Flow is 3. 10:14:05 Heparin Bolus 9000 units I.V. was administered by Reymundo Colindres RN; for anticoagulation; verified with dr driscoll Verbal order read back and verified. 10:14:12 6 Fr JR 4 guide catheter was inserted over the wire 10:14:18 Pressure wire advanced. 10:18:15 Wire advanced across lesion. 10:18:21 Baseline FFR 1. 10:19:09 pRCA lesion measured at 0.97 with IFR 10:20:02 Wire removed. 10:20:06 Guide catheter removed. 10:20:20 Sheath removed intact; hemostasis achieved with Exoseal to the Right Femoral artery. 10:20:30 Procedure ended.(Physican Out) 10:21:19 Fluoroscopy time 06.80 minutes. 10:21:26 Fluoroscopy dose: 1116 mGy 10:21:26 Flurop Dose total: 1116 10:21:35 Dose Area Product 76462 mGy/cm. 10:22:29 Contrast amount:Isovue 370 107ml. 10:22:31 Maximum allowable dose exceeded? No. 10:22:32 Sharps counted by scrub and verified by R.N. 10:22:33 Insertion/operative site no bleeding no hematoma. 10:22:36 Post-op/insertion site Right Femoral artery dressed using a 4 x 4 and Tegaderm. 10:22:38 Post right femoral artery:stable 10:22:41 Post Procedure Pulses reassessed and unchanged 10:22:43 Post procedure rhythm: unchanged. 10:22:48 Patient needs reinforcement of post procedure teaching. 10:22:48 Post procedure instruction explained to patient.Patient verbalizes understanding. 10:23:11 Procedure type changed to Cath procedure, Diagnostic procedure, LHC, LHC w/Coronaries w/Grafts, FFR/IVUS, FFR Initial, Sedation Charges, Moderate Sedation 25-39 minutes 10:23:47 Procedure and supply charges have been captured, reviewed, submitted and are correct. 10:23:51 Procedure Complication : No complications 10:23:56 Vital chart was stopped 10:24:01 [facility] Findings: mild to moderate CAD (<70%) 10:24:03 Operative report dictated upon procedure completion. 10:24:04 See physician's report for complete and final results. 10:24:54 EXOSEAL 6Fr (EX600) opened to sterile field. 10:25:00 Report given to Med II. 10:25:05 Patient transfered to Med II with Stretcher. 10:25:11 Full Disclosure recording stopped 10:25:11 Procedure ended. 10:25:15 End room use (Document Last) 10:26:39 ACT drawn and resulted at 316 seconds. (normal therapeutic range 180-240 seconds). 10:26:52 Estimated blood loss: 0 ml Device Usage Item Name Manufacture Quantity Catalog Hospital Part Current Minimal L ot# / Number Charge Number Stock Stock Serial# Code ACIST Acist 1 11969 696849 009054 901142 20 Syringe Medical (73062) Systems Inc Bag Microtek 1 187890 48215 220457 5 Decanter Medical Inc. () Medline Medline 1 [id number] 771191 23514 260589 5 Cath Pack ([id number]) ACIST Hand Acist 1 94801 235265 838407 941511 5 Control Medical (66846) Systems Inc ACIST Acist 1 46144 840921 357016 100761 5 Manifold Medical (90780) Systems Inc DIAGNOSTIC Cardinal 1 RA3108 594215 35784 635912 30 [facility] Go Vocab 5Fr catheter set (RC5870) Tegaderm 4 3M 1 1626W 526931 461051 202415 5 x 4 (1626W) SHEATH 5FR Terumo 1 TYR183 573768 143270 945640 5 [place] (WUW267) EMERALD Cardinal 1 502-455 954710 857473 672296 5 Guide Wire Health (502-455) MULTIPACK Cardinal 1 267857 5 JL 4.0 5Fr Health catheter DIAGNOSTIC Cardinal 1 374117Q 439211 347514 665441 15 AR1 MOD 5Fr Health catheter ([id number]) MULTIPACK Cardinal 1 222981 5 3DRC 5Fr Health catheter DIAGNOSTIC Cardinal 1 498194C 916742 189553 738598 5 IM 5Fr Health catheter (225247T) MULTIPACK Cardinal 1 208216 5 Pigtail 5 Health Fr catheter SHEATH 6FR Terumo 1 LLV585 997969 607679 227517 40 [place] (IUG923) INFLATOR Merit 1 FR8519 613534 496466 212845 15 Merit Medical BasixCompak (DJ1136) TUBING High Merit 1 VR0058F 348284 77535 891234 10 Pressure Medical Extension Tubing (Driscoll) (KH7730V) Downey Downey 1 0498936 938533 78992 9995 5 OmniWire (34046) GUIDE 6FR Medtronic 1 JH2CG80 692789 17060 842360 1 JR 4.0 catheter (PN5PE45) EXOSEAL 6Fr Cardinal 1 EX600 059382 286237 090705 10 (EX600) Health Signature Audit [place] Stage Time Signature Unsigned Intra-Procedure 12/23/2020 Floridalma Howard 10:26:17 AM RT(R) Intra-Procedure 12/23/2020 Reymundo Colindres RN 10:26:52 AM Intra-Procedure 12/23/2020 Garrett Driscoll MD 10:28:33 AM [facility] [address] [place] [address]
--- NOTE | 2020-12-22 07:18 | NUR ---
RT NOTIFIED OF BREATHING TREATMENT AT THIS TIME.
--- NOTE | 2020-12-22 07:24 | NUR ---
RT ROUNDING FOR ABGs AND UPDRAFT.
[2020-12-22] MEDS ORDERED: EFFEXOR75 MG PO (07:43)
[2020-12-22] MEDS ORDERED: PRINIVIL20 MG PO (07:45)
[2020-12-22] MEDS ORDERED: NITROSTAT0.4 MG SL (07:46)
[2020-12-22] MEDS ORDERED: POLYTRIM EYE DR10 ML EACH EYE (07:46)
[2020-12-22 07:47] LABS: BASOPHILS 0.1 % (0-2); HEMATOCRIT 30.2 % (36.0-48.0); HEMOGLOBIN 9.4 g/dL (12-16); IMMATURE GRANULOCYTES 3.6 % (0-5); LYMPHOCYTE ABS# 1.42 10x3/uL (1.18-3.74); MCH 31.4 pg (26.0-34.0); MCHC 31.1 g/dL (31.0-37.0); MEAN PLATELET VOLUME 10.1 fL (7.4-10.4); MONOCYTES 5.2 % (2-11); NEUTROPHIL ABS# 4.67 10x3/uL (1.56-6.13); NEUTROPHILS 69.1 % (40-80); PLATELET COUNT 187 10x3/uL (130-400); RBC 2.99 10x6/uL (4.00-5.40); RDW 17.2 % (11.5-14.5); WBC 6.8 10x3/uL (4.8-10.8)
--- NOTE | 2020-12-22 07:47 | NUR ---
HOME MEDS RECONCILED
[2020-12-22 07:56] LABS: APTT 29.9 SECONDS (22.8-39.4); CALC OSMOLALITY 282 mosm/kg (275-300); CARBON DIOXIDE 31.4 mmol/L (21.0-32.0); CHLORIDE - SERUM 101 mmol/L (98-107); GLUCOSE 148 mg/dL (74-106); INR 1.2 (0.85-1.17); POTASSIUM - SERUM 3.4 mmol/L (3.5-5.1); PROTIME 14.1 SECONDS (11.6-15.0); SODIUM 140 mmol/L (136-145); UREA NITROGEN 15 mg/dL (7-18); eGFR NON AFRICAN AMERICAN 57 mL/min (90-120)
--- NOTE | 2020-12-22 07:58 | NUR ---
COVID-19 ANTIGEN AND PCR SWAB COLLECTED PER PROTOCOL AND SENT TO LAB.
--- NOTE | 2020-12-22 08:00 | NUR ---
PATIENT NOTED TO HAVE DESAT ON MONITOR. UPON ENTERING PATIENT HAD O2 CANNULA OFF. PUT O2 CANNULA BACK ON APPROPRIATELY, O2 SAT INCREASED. WILL MONITOR. NAD.
[2020-12-22 08:12] LABS: ALBUMIN 3.2 g/dL (3.4-5.0); ALKALINE PHOSPHATASE 64 U/L (30-120); ALT (SGPT) 45 U/L (10-68); BILIRUBIN - TOTAL 0.54 mg/dL (0.2-1.3); CKMB 1.4 U/L (0.0-3.6); CREATINE KINASE 101 UL (21-215); PRO BNP 5584 pg/mL (0-450); PROTEIN - SERUM 6.6 g/dL (6.4-8.2); TROPONIN-I < 0.017 ng/mL (0.000-0.060)
[2020-12-22 08:36] LABS: SARS-CoV-2 ANTIGEN NEGATIVE- SARS-COV-2 (NEGATIVE)
--- NOTE | 2020-12-22 08:42 | NUR ---
ASSISTED TO POSITION OF COMFORT, GIVEN BLANKET. DENIES FURTHER NEEDS. REPORTS FEELING IMPROVED.
--- NOTE | 2020-12-22 08:49 | NUR ---
ATTEMPTED TO CALL REPORT AT THIS TIME FOR ROOM 2139. STATES THAT NURSE WILL CALL BACK.
--- NOTE | 2020-12-22 08:56 | NUR ---
REPORT CALLED TO MENDOZA ON MED II.
--- NOTE | 2020-12-22 10:30 | NUR ---
PATIENT SITTING ON SIDE OF BED, RESP EVEN AND NON LABORED, NO S/S OF DISTRESS, ASSISTED PATIENT TO BATHROOM AND BACK TO BED, PATIENTS ASSESSMENT AND QUICKSTART COMPLETED, NO FURTHER NEEDS AT THIS TIME, VIANCA MENESES
--- NOTE | 2020-12-22 20:03 | NUR ---
Assumed care of pt after report/rounds. Pt is A&OX4 and verbalizes wants/needs clearly without hesitation or difficulty. Denies pain/discomfort. Tele on and leads readjusted. Pt resting in bed at this time. RT did apply O2 via NC to maintain Sats>90%. Pt shows no s/sx of dyspnea on assessment.
[2020-12-23] VITALS (8 sets, daily range): BP systolic 138–185; BP diastolic 59–100; Ht 157.5 cm; Wt 94.8 kg
[2020-12-23 05:57] LABS: BASOPHILS 0.4 % (0-2); EOSINOPHILS 0 % (0-7); HEMATOCRIT 31.1 % (36.0-48.0); HEMOGLOBIN 9.6 g/dL (12-16); IMMATURE GRANULOCYTES 4.7 % (0-5); LYMPHOCYTES 23.7 % (15-50); MCH 31.4 pg (26.0-34.0); MCHC 30.9 g/dL (31.0-37.0); MCV 101.6 fL (80.0-100.0); MEAN PLATELET VOLUME 10.8 fL (7.4-10.4); MONOCYTES 9.9 % (2-11); NEUTROPHIL ABS# 3.36 10x3/uL (1.56-6.13); NEUTROPHILS 61.3 % (40-80); RBC 3.06 10x6/uL (4.00-5.40); RDW 17.1 % (11.5-14.5); WBC 5.5 10x3/uL (4.8-10.8)
[2020-12-23 06:22] LABS: ALBUMIN 3.4 g/dL (3.4-5.0); ANION GAP 8.9 mmol/L (8-16); BILIRUBIN - TOTAL 0.7 mg/dL (0.2-1.3); CALCIUM 8.8 mg/dL (8.5-10.1); CARBON DIOXIDE 31.4 mmol/L (21.0-32.0); CREATININE - SERUM 1.2 mg/dL (0.6-1.3); MAGNESIUM - SERUM 2.2 mg/dL (1.8-2.4); POTASSIUM - SERUM 3.3 mmol/L (3.5-5.1); PROTEIN - SERUM 7.2 g/dL (6.4-8.2)
[2020-12-23 06:28] LABS: PLATELET COUNT 261 10x3/uL (130-400)
--- NOTE | 2020-12-23 08:15 | NUR ---
PATIENT PREOP FOR HEALTH CONSULTANT. TYLENOL GIVEN FOR BACK PAIN AND BETA KELIN MED GIVEN.
[2020-12-23 08:38] LABS: CHOL - HDL RATIO 2.9 ratio (2.3-4.1); LDL-HDL RATIO 1.1 ratio (1.5-3.5)
--- NOTE | 2020-12-23 09:20 | NUR ---
LEFT FOR RN DIGESTIVE VIA BED.
--- NOTE | 2020-12-23 19:48 | NUR ---
PT SITTING UP IN BED, AWAKE ALERT DRESSING TO RIGHT GROIN CDI, PPP. DENIES NEEDS. WILL CONTINUE TO MONITOR
[2020-12-24 04:00] VITALS: BP 121/79
--- NOTE | 2020-12-24 06:24 | NUR ---
pt c/o SOB O2 sat 99-100% on 3.5 L pt reports anxiety and that she feels she probably needs somthing for this. She also wants her home [place] resumed. Pt scheduled UD due 0700 notified RT pt would like these whenever she can have them. Outside Solar Sales Consultant distress noted at this time, will pass on in shift report will continue to monitor
[2020-12-24 06:53] LABS: BASOPHILS 0.2 % (0-2); EOSINOPHILS 0 % (0-7); HEMATOCRIT 30.2 % (36.0-48.0); HEMOGLOBIN 9.5 g/dL (12-16); IMMATURE GRANULOCYTES 2.2 % (0-5); LYMPHOCYTES 22.4 % (15-50); MCH 31.9 pg (26.0-34.0); MCHC 31.5 g/dL (31.0-37.0); MCV 101.3 fL (80.0-100.0); MONOCYTES 8.8 % (2-11); NEUTROPHIL ABS# 3.56 10x3/uL (1.56-6.13); NEUTROPHILS 66.4 % (40-80); PLATELET COUNT 255 10x3/uL (130-400); RBC 2.98 10x6/uL (4.00-5.40); RDW 17.3 % (11.5-14.5); WBC 5.4 10x3/uL (4.8-10.8)
[2020-12-24 07:05] LABS: ALBUMIN 3.4 g/dL (3.4-5.0); BILIRUBIN - TOTAL 0.76 mg/dL (0.2-1.3); CALCIUM 8.5 mg/dL (8.5-10.1); CARBON DIOXIDE 30.2 mmol/L (21.0-32.0); CREATININE - SERUM 1.1 mg/dL (0.6-1.3); MAGNESIUM - SERUM 2.2 mg/dL (1.8-2.4); PHOSPHOROUS 3.8 mg/dL (2.5-4.9); PROTEIN - SERUM 6.7 g/dL (6.4-8.2)
[2020-12-24 07:06] LABS: POTASSIUM - SERUM 4.2 mmol/L (3.5-5.1)
[2020-12-24 09:38] VITALS: BP 180/79
--- NOTE | 2020-12-24 19:30 | NUR ---
PT IN BED, AAO X 2, RESP EVEN AND UNLABORED, NO DISTRESS NOTED, CL IN REACH, SR UP X 2.
[2020-12-24 20:00] VITALS: BP 165/84
--- NOTE | 2020-12-25 03:35 | NUR ---
I have reviewed this patient and I concur with the Shift Assessment completed by the Licensed Practical Nurse today this shift.
[2020-12-25 04:00] VITALS: BP 129/69
[2020-12-25 05:16] LABS: HEMATOCRIT 29.8 % (36.0-48.0); HEMOGLOBIN 9.7 g/dL (12-16); MCH 32.6 pg (26.0-34.0); MCHC 32.6 g/dL (31.0-37.0); MEAN PLATELET VOLUME 10.3 fL (7.4-10.4); NEUTROPHILS 52.7 % (40-80); PLATELET COUNT 271 10x3/uL (130-400); RBC 2.98 10x6/uL (4.00-5.40); RDW 17.4 % (11.5-14.5); WBC 4.8 10x3/uL (4.8-10.8)
[2020-12-25 06:23] LABS: ALBUMIN 3.3 g/dL (3.4-5.0); ANION GAP 11.6 mmol/L (8-16); BILIRUBIN - TOTAL 0.72 mg/dL (0.2-1.3); CALCIUM 8.5 mg/dL (8.5-10.1); CARBON DIOXIDE 27.9 mmol/L (21.0-32.0); CREATININE - SERUM 1.1 mg/dL (0.6-1.3); PROTEIN - SERUM 6.9 g/dL (6.4-8.2)
[2020-12-25 06:24] LABS: POTASSIUM - SERUM 3.5 mmol/L (3.5-5.1)
--- NOTE | 2020-12-25 08:00 | NUR ---
SITTING UP IN BED, AWAKE/ALERT/ORIENTED, T/R SELF AD LANDON, CONT OF B/B WITH BRPs PER SELF AD LANDON, DENIES PAIN/OTHER DISCOMFORT AT THIS TIME, CALL LIGHT/PHONE/WATER WITHIN REACH, NO S/S OF ACUTE DISTRESS OBSERVED.
[2020-12-25 08:39] VITALS: BP 132/70
[2020-12-25 12:31] VITALS: BP 105/83
[2020-12-25 16:01] VITALS: BP 115/79
--- NOTE | 2020-12-25 19:30 | NUR ---
PT IN BED, AAO X 3, RESP EVEN AND UNLABORED, NO DISTRESS NOTED, CL IN REACH, SR UP X 2.
[2020-12-25 20:00] VITALS: BP 122/68
[2020-12-26 04:45] VITALS: BP 169/61
[2020-12-26 05:27] LABS: BASOPHILS 0.2 % (0-2); EOSINOPHILS 0 % (0-7); HEMATOCRIT 32.2 % (36.0-48.0); IMMATURE GRANULOCYTES 2.8 % (0-5); LYMPHOCYTE ABS# 1.47 10x3/uL (1.18-3.74); LYMPHOCYTES 33.7 % (15-50); MCH 31.1 pg (26.0-34.0); MCHC 31.1 g/dL (31.0-37.0); MEAN PLATELET VOLUME 10.7 fL (7.4-10.4); MONOCYTES 8.7 % (2-11); NEUTROPHIL ABS# 2.38 10x3/uL (1.56-6.13); NEUTROPHILS 54.6 % (40-80); PLATELET COUNT 281 10x3/uL (130-400); RBC 3.22 10x6/uL (4.00-5.40); RDW 17.1 % (11.5-14.5); WBC 4.4 10x3/uL (4.8-10.8)
[2020-12-26 05:58] LABS: ALBUMIN 3.3 g/dL (3.4-5.0); BILIRUBIN - TOTAL 0.74 mg/dL (0.2-1.3); CALCIUM 8.4 mg/dL (8.5-10.1); CARBON DIOXIDE 28.6 mmol/L (21.0-32.0); MAGNESIUM - SERUM 2.1 mg/dL (1.8-2.4); POTASSIUM - SERUM 3.6 mmol/L (3.5-5.1); PROTEIN - SERUM 6.8 g/dL (6.4-8.2)
--- NOTE | 2020-12-26 06:30 | NUR ---
I have reviewed this patient and I concur with the Shift Assessment completed by the Licensed Practical Nurse today this shift.
--- NOTE | 2020-12-26 07:50 | NUR ---
SITTING UP ON SIDE OF BED, AWAKE/ALERT/ORIENTED, T/R SELF AD LANDON, CONT OF B/B WITH BRPs PER SELF AD LANDON, DENIES PAIN/OTHER DISCOMFORT AT THIS TIME, CALL LIGHT/PHONE/WATER WITHIN REACH, NO S/S OF ACUTE DISTRESS OBSERVED.
[2020-12-26] MEDS ORDERED: ENTRESTO 24 MG1 EACH PO (09:59)
[2020-12-26] MEDS ORDERED: PULMICORT0.5 MG/21 UPD (10:00)
--- NOTE | 2020-12-26 11:55 | NUR ---
PROVIDED WRITTEN AND VERBAL DISCHARGE, INSTRUCTIONS/EDUCATION TO WHICH PT STATED UNDERSTANDING, DISCONTINUED IV ACCESS AND CARDIAC TELEMETRY MONITORING, NO S/S OF ACUTE DISTRESS OBSERVED.
--- NOTE | 2020-12-26 13:33 | NUR ---
DC'd home to self care via w/c in stable condition accompanied by hospital staff and a family member, no s/s of acute distress observed.
--- NOTE | 2020-12-26 13:38 | NUR ---
Nutrition Follow-up: Pt reports good appetite/PO intake. Denies N/V/C/D. Noted plans to d/c today. Diet: Cardiac No new wt; last wt: 209# (12/23) Last BM: 12/25 Labs noted: Na 134, Glu 128, Ca 8.4, Alb 3.3 Meds reviewed -RD will follow up within 7 days if pt still admitted.
--- NOTE | 2020-12-26 14:15 | MORECARE ---
CASE MANAGEMENT DISCHARGE SUMMARY PATIENT: AVA PASCUAL UNIT: [id number] ADM DATE: 12/22/20 AGE: 80 : 42 SEX: F ROOM/BED: D2134 AUTHOR: EMILEE FISH PHYSICIAN: REFERRING PHYSICIAN: JUSTICE JIMENEZ MD DATE OF SERVICE: 12/26/20 Case Management Discharge Planning Summary DCP REVIEW SUMMARY ANTICIPATED D/C DATE: EXPECTED LOS : CASE STATUS: DCP Initiated INITIAL REVIEW: 12/26/2020 INITIAL REVIEWER: Ana Luisa Vernon FINAL DISCHARGE DISPOSITION: : FINAL REVIEWER: FINAL REVIEW DATE: DCP Focus Questions & Answers DCP REV -DCP Review Added on: 12/26/20 2:13 pm QUESTION: ANSWER DCP Screen High Risk Factors: : None Walking limitation: Patient stated self rated walking limitation present? : No Age: : 67 - 81 Prior living environment: : Lives with others Disability ranking: : Grade 1: No significant disability DCP Evaluation Patient's ability to cope with chronic illness : d. No chronic illness Mental health screen: : No mental health history Would patient like to participate in any Care Coordination programs (if applicable): : Not applicable DCP Re-evaluation Would patient like to participate in any Care Coordination programs (if applicable): : Not applicable PROVIDER NETWORKING REVIEW DATE: 12/26/2020 SERVICE TYPE: Durable Medical Equipment REVIEWER: Ana Luisa Vernon REVIEW DATE: 12/26/2020 SERVICE TYPE: Durable Medical Equipment REVIEWER: Ana Luisa Vernon REVIEW DATE: 12/26/2020 SERVICE TYPE: Home Health Care (Non-Skilled) REVIEWER: Ana Luisa Vernon PROVIDER: FINAL PROVIDER? : FINAL DATE/TIME: CT PATIENT: AVA PASCUAL ENCOUNTER: [id number] MEDICAL RECORD#: [id number] ADMISSION DATE: 12/22/2020 DISCHARGE DATE: 12/26/2020 ATTENDING MD: JUSTICE AGUILAR : AGE: 80 MARITAL STATUS: W DC PLAN ID: [id number] FACILITY: [facility] PRINTED ON: 12/26/20 14:15 CT All edits/amendments must be made on the electronic document DICTATION DATE: 12/26/20 141 SENIOR FRONT END DEVELOPER: BRITTNEY 12/26/20 141 RPT#: [id number] DC DATE:12/26/20 STATUS: DIS IN [facility] [address] [place] [address] END OF REPORT
--- NOTE | 2020-12-26 14:18 | NUR ---
SHAVON met with patient in the room to discuss discharge planning/needs. She states she lives with her grand daughter (#[phone]). States she is independent with all ADL's, except grand daughter helps with shower sometimes. States she has home oxygen with portable, but wants to change companies. States [employer] is "double charging". [facility] for [facility] signed. She has a shower chair. I called [facility] at [facility] and faxed DWO by Dr. Don for nebulizer with A&A and oxygen with portability. [facility] states they can service her because they have a contract with [employer]. Oxygen tank has been delivered to her room. States she has a shower chair at home. She uses [facility]. Dr. Horn is her PCP. I have faxed clinical to [facility]. LACI BALBUENA explained, signed, given, copy placed in MR.
--- NOTE | 2020-12-26 14:27 | MORECARE ---
CASE MANAGEMENT DISCHARGE SUMMARY PATIENT: AVA PASCUAL UNIT: [id number] ADM DATE: 12/22/20 AGE: 80 : 44 SEX: F ROOM/BED: D.0063 AUTHOR: EMILEE FISH PHYSICIAN: REFERRING PHYSICIAN: JUSTICE JIMENEZ MD DATE OF SERVICE: 12/26/20 Case Management Discharge Planning Summary COMMENTS ENTERED DATE: 12/26/20 14:14 CT COMMENT TYPE: Discharge Planning REVIEWER: Ana Luisa Vernon CM met with patient in the room to discuss discharge planning/needs. She states she lives with her grand daughter [phone]). States she is independent with all ADL's, except grand daughter helps with shower sometimes. States she has home oxygen with portable, but wants to change companies. States [employer] is "double charging". BERNARDA for [facility] signed. She has a shower chair. I called [facility] at [facility] and faxed DWO by Dr. Don for nebulizer with [employer] and oxygen with portability. [facility] states they can service her because they have a contract with [employer]. Oxygen tank has been delivered to her room. States she has a shower chair at home. She uses [facility] Dr. Horn is her PCP. I have faxed clinical to [facility]. DC IMM explained, signed, given, copy placed in MR. SAMSON REVIEW SUMMARY ANTICIPATED D/C DATE: EXPECTED LOS : CASE STATUS: DCP Initiated INITIAL REVIEW: 12/26/2020 INITIAL REVIEWER: Ana Luisa Vernon FINAL DISCHARGE DISPOSITION: : FINAL REVIEWER: FINAL REVIEW DATE: DCP Focus Questions & Answers DCP REV -DCP Review Added on: 12/26/20 2:13 pm QUESTION: ANSWER DCP Screen High Risk Factors: : None Walking limitation: Patient stated self rated walking limitation present? : No Age: : 67 - 81 Prior living environment: : Lives with others Disability ranking: : Grade 1: No significant disability DCP Evaluation Patient's ability to cope with chronic illness : d. No chronic illness Mental health screen: : No mental health history Would patient like to participate in any Care Coordination programs (if applicable): : Not applicable DCP Re-evaluation Would patient like to participate in any Care Coordination programs (if applicable): : Not applicable PROVIDER NETWORKING REVIEW DATE: 12/26/2020 SERVICE TYPE: Durable Medical Equipment REVIEWER: Ana Luisa Vernon REVIEW DATE: 12/26/2020 SERVICE TYPE: Durable Medical Equipment REVIEWER: Ana Luisa Vernon REVIEW DATE: 12/26/2020 SERVICE TYPE: Home Health Care (Non-Skilled) REVIEWER: Ana Luisa Vernon PROVIDER: FINAL PROVIDER? : FINAL DATE/TIME: CT PATIENT: AVA PASCUAL ENCOUNTER: [id number] MEDICAL RECORD#: [id number] ADMISSION DATE: 12/22/2020 DISCHARGE DATE: 12/26/2020 ATTENDING MD: JUSTICE AGUILAR : [id number] AGE: 80 MARITAL STATUS: W DC PLAN ID: [id number] FACILITY: [facility] PRINTED ON: 12/26/20 14:27 CT All edits/amendments must be made on the electronic document DICTATION DATE: 12/26/201426 WOUND SPECIALIST: DM 12/26/201426 RPT#: [id number] DC DATE:12/26/20 STATUS: DIS IN [facility] [address] [place] [address] END OF REPORT
== END 2020-12-26 13:33 | disposition home or self-care (01) | DRG 250 ==
LOC: D.ER 07:10 → D.M2 08:21
PROVIDERS: Family Medicine; Internal Medicine Cardiovascular Disease; ADMIT Family Medicine Adult Medicine; ATTEND Family Medicine Adult Medicine
PROC: 4A023N7 Measurement of Cardiac Sampling and Pressure, Left Heart, Percutaneous Approach (ICD-10-PCS; 2020-12-23)
PROC: B2111ZZ Fluoroscopy of Multiple Coronary Arteries using Low Osmolar Contrast (ICD-10-PCS; 2020-12-23)
PROC: 4A033BC Measurement of Arterial Pressure, Coronary, Percutaneous Approach (ICD-10-PCS; 2020-12-23)
PROC: 02703ZZ Dilation of Coronary Artery, One Artery, Percutaneous Approach (ICD-10-PCS; principal; 2020-12-23 09:08)
DX: I11.0 Hypertensive heart disease with heart failure (principal); I50.21 Acute systolic (congestive) heart failure; J44.1 Chronic obstructive pulmonary disease with (acute) exacerbation; E78.5 Hyperlipidemia, unspecified; I25.110 Atherosclerotic heart disease of native coronary artery with unstable angina pectoris; I48.0 Paroxysmal atrial fibrillation; I08.1 Rheumatic disorders of both mitral and tricuspid valves

== ENCOUNTER → 2021-03-27 12:30 | Outpatient (CLI) | payer MEDICARE ==
[2020-12-23 13:34] VITALS: BMI 38.2
[~2021-03-27 12:30] MED LIST changes: +EFFEXOR75 MG PO; +ENTRESTO 24 MG1 EACH PO; +NITROSTAT0.4 MG SL; +POLYTRIM EYE DR10 ML EACH EYE; +PULMICORT0.5 MG/21 UPD
== END | disposition home or self-care (01) ==
LOC: D.HCCECHO 12:30
PROVIDERS: ATTEND Internal Medicine Cardiovascular Disease
DX: I48.91 Unspecified atrial fibrillation (principal)

== ENCOUNTER 2021-04-04 11:28 | Emergency (ER) | payer MEDICARE ==
[~2021-04-04] VITALS: Ht 157.5 cm; Wt 89.1 kg
[2021-04-04 11:34] VITALS: Ht 157.5 cm; Wt 89.1 kg
[2021-04-04 12:05] LABS: HEMATOCRIT 26.8 % (36.0-48.0); MCH 31.9 pg (26.0-34.0); MCHC 33.7 g/dL (31.0-37.0); MCV 94.8 fL (80.0-100.0); MEAN PLATELET VOLUME 7.4 fL (7.4-10.4); RBC 2.83 10x6/uL (4.00-5.40); RDW 17.9 % (11.5-14.5); WBC 2.4 10x3/uL (4.8-10.8)
[2021-04-04 12:07] LABS: PLATELET COUNT 158 10x3/uL (130-400)
[2021-04-04 12:15] LABS: ANION GAP 12.3 mmol/L (8-16); CALCIUM 9.1 mg/dL (8.5-10.1); CARBON DIOXIDE 28.2 mmol/L (21.0-32.0); POTASSIUM - SERUM 3.5 mmol/L (3.5-5.1)
[2021-04-04 12:28] LABS: ALBUMIN 3.4 g/dL (3.4-5.0); BILIRUBIN - TOTAL 0.5 mg/dL (0.2-1.3); PROTEIN - SERUM 7.2 g/dL (6.4-8.2)
[2021-04-04 13:54] LABS: ANISOCYTOSIS 1+; EOSINOPHILS 1 % (0-7); LYMPHOCYTES 32 % (15-50); MONOCYTES 11 % (2-11); NEUTROPHILS 52 % (40-80); PLATELET ESTIMATE NORMAL; SMUDGE CELLS OCC
[2021-04-04 15:04] VITALS: BP 135/68
== END 2021-04-04 15:05 | disposition home or self-care (01) ==
LOC: D.ER 11:28
PROVIDERS: Family Medicine
DX: I10 Essential (primary) hypertension (principal); Z72.0 Tobacco use